=== PATIENT | female | born 1945 | race Caucasian/White ===

== ENCOUNTER 2018-12-07 21:11 | Inpatient (IN) | payer OTHER, MEDICAID ==
[~2018-12-07] VITALS: Ht 160 cm; Wt 98.0 kg
[2018-12-07 21:14] VITALS: BP_SYST 153
--- NOTE | 2018-12-07 21:17 | NUR ---
Pt BIB ALS from [facility] C/O fever x 3 hours. EMS states when they arrived on scene pt was tachycardic, hypertensive and slow to respond. Staff advised pt is not "acting normal". Upon arrival to ER pt is able to answer questions appropriately, tachycardic at 140, temp 105 and BP of 153/88. Pt C/O of pain and nausea at this time. Cooling measures initiated. Will continue to monitor.
--- NOTE | 2018-12-07 21:18 | NUR ---
Placed in room 03 . Placed on air sampling and monitoring, blood pressure machine and pulse oximeter. To gown for exam. Side rails up. Report given to MERCED TINOCO.
--- NOTE | 2018-12-07 21:18 | NUR ---
ER Dr. Theodore at bedside examining patient.
[2018-12-07] MEDS ORDERED: NACL 0.9% 1,000 ML IV ONE (21:19)
--- NOTE | 2018-12-07 21:19 | NUR ---
# 20 gauge angiocath placed to RT AC. Use of asceptic technique. Opsite placed over site. Blood return noted. Blood for lab drawn from site. Flushed with 10 cc of normal saline. No evidence of infiltration noted. Patient tolerated well.
[2018-12-07 21:34] LABS: BASOPHILS % (AUTO) 0.3 % (0.0-2.0); EOSINOPHILS # (AUTO) 0.1 K/uL (0.0-0.4); EOSINOPHILS % (AUTO) 0.8 % (0.0-4.0); HEMATOCRIT 39.2 % (36-48); LYMPHOCYTES # (AUTO) 0.5 K/uL (1.0-5.5); LYMPHOCYTES % (AUTO) 4.9 % (20.5-51.5); MEAN CORPUSCULAR HEMOGLOBIN 32 pg (27-31); MEAN CORPUSCULAR HGB CONC 33 % (32-36); MEAN CORPUSCULAR VOLUME 97 fL (79.0-98.0); MONOCYTES # (AUTO) 0.3 K/uL (0.0-1.0); MONOCYTES % (AUTO) 2.7 % (1.7-9.3); NEUTROPHILS # (AUTO) 9.8 K/uL (1.8-7.7); NEUTROPHILS % (AUTO) 91.3 % (40.0-70.0); PLATELET COUNT (AUTO) 185 K/uL (130-430); RED BLOOD CELL COUNT(AUTO) 4.04 MIL/uL (4.2-6.2); RED CELL DISTRIBUTION WIDTH 14.4 % (9.0-15.0); WHITE BLOOD COUNT (AUTO) 10.8 K/uL (4.8-10.8)
--- NOTE | 2018-12-07 21:38 | NUR ---
Radiology at [facility] for xray
[2018-12-07 21:43] LABS: ANION GAP 12 (5-15); CHLORIDE 102 mmol/L (98-107); CREATININE 1.15 mg/dL (0.55-1.30); GLUCOSE 137 mg/dL (70-99); POTASSIUM 3.7 mmol/L (3.5-5.1); SODIUM SERUM 137 mmol/L (136-145); UREA NITROGEN, BLOOD 26 mg/dL (8-21)
[2018-12-07] MEDS ORDERED: ACETAMINOPHEN 650 MG SUPP.RECT RC ONE (21:45)
[2018-12-07 21:49] LABS: ALANINE AMINOTRANSFERASE 48 U/L (12-78); ALBUMIN 2.8 g/dL (3.4-4.8); ASPARTATE AMINOTRANSFERASE 47 U/L (10-37); TOTAL BILIRUBIN 0.4 mg/dL (0.0-1.0)
--- NOTE | 2018-12-07 21:52 | NUR ---
Verbal order for indwelling catheter given by Dr. Theodore. # 16 FR Medina catheter with use of sterile technique. Immediate return of 125 cc clear yellow urine noted. Bedside drainage bag placed below level of bladder. Urine sample collected and sent to lab. Pt tolerated procedure well. Patient unable to toilet self.
[2018-12-07 21:58] LABS: PROTHROMBIN TIME 10.3 SECS (9.5-12.5)
[2018-12-07 22:33] LABS: BILIRUBIN,URINE NEGATIVE (NEGATIVE); BLOOD, URINE 1+ (NEGATIVE); CLARITY/URINE CLEAR (CLEAR); COLOR,URINE YELLOW (YELLOW); GLUCOSE,URINE NEGATIVE (NEGATIVE); KETONES,URINE NEGATIVE (NEGATIVE); LEUKOCYTE ESTERASE ,URINE NEGATIVE (NEGATIVE); NITRITE, URINE POSITIVE (NEGATIVE); PROTEIN URINE TRACE (NEGATIVE); UROBILINOGEN,URINE 0.2 (0.2-1.0)
[2018-12-07 22:39] LABS: BACTERIA,URINE MANY /HPF (None Seen); WBC,URINE 0-3 /HPF (0-3)
[2018-12-07] MEDS ORDERED: LEVOFLOXACIN 500 MG/D5W 100 ML IV ONE (23:00)
--- NOTE | 2018-12-07 23:35 | NUR ---
Pt is sleeping in bed, febrile. Pt denies any pain at this time. Will continue to monitor.
--- NOTE | 2018-12-07 23:47 | NUR ---
Pt temp is currently 100.9
[2018-12-08] VITALS (9 sets, daily range): BP systolic 117–170
[2018-12-08] MEDS ORDERED: FURO-150 PO (00:22)
[2018-12-08] MEDS ORDERED: TOP25 PO (00:22)
[2018-12-08] MEDS ORDERED: MOM PO (00:22)
[2018-12-08] MEDS ORDERED: FERR-69 PO (00:22)
[2018-12-08] MEDS ORDERED: DOCU-144 PO (00:22)
[2018-12-08] MEDS ORDERED: MENT118G TP (00:22)
[2018-12-08] MEDS ORDERED: ACET-2634 PO (00:22)
[2018-12-08] MEDS ORDERED: PRO10 PO (00:22)
[2018-12-08] MEDS ORDERED: BISA10SU61 RC (00:22)
[2018-12-08] MEDS ORDERED: LORA-258 PO (00:22)
[2018-12-08] MEDS ORDERED: LACT10SO6 PO (00:22)
[2018-12-08] MEDS ORDERED: MENT8OIN TP (00:22)
[2018-12-08] MEDS ORDERED: SENN-234 PO (00:22)
[2018-12-08] MEDS ORDERED: MECL-110 PO (00:22)
[2018-12-08] MEDS ORDERED: LOVA40TA75 PO (00:22)
[2018-12-08] MEDS ORDERED: METH500T PO (00:22)
[2018-12-08] MEDS ORDERED: FAMO20TA8 PO (00:22)
[2018-12-08] MEDS ORDERED: NA P133E41 RC (00:22)
[2018-12-08] MEDS ORDERED: FLUT50DI IH (00:22)
[2018-12-08] MEDS ORDERED: OXYC30TA89 PO (00:22)
[2018-12-08] MEDS ORDERED: HYDR-4038 PO (00:22)
[2018-12-08] MEDS ORDERED: IPRA4AER INH (00:22)
[2018-12-08] MEDS ORDERED: OXYC-133 PO (00:22)
[2018-12-08] MEDS ORDERED: GABA-533 PO (00:22)
--- NOTE | 2018-12-08 00:40 | NUR ---
Pt is resting in bed, no acute distress noted at this time. Will continue to monitor.
[2018-12-08] MEDS ORDERED: METHOCARBAMOL 500 MG TABLET PO PRN (00:45)
[2018-12-08] MEDS ORDERED: ONDANSETRON HCL 4 MG/2 ML VIAL IVP PRN (00:45)
[2018-12-08] MEDS ORDERED: ALBUTEROL SULFATE 0.083% 2.5 MG/3 ML VIAL.NEB INH PRN (00:45)
[2018-12-08] MEDS ORDERED: BISACODYL 10 MG/SUPPOSITORY RC PRN (00:45)
[2018-12-08] MEDS ORDERED: MILK OF MAGNESIA 30 ML UDC PO PRN (00:45)
--- NOTE | 2018-12-08 01:00 | NUR ---
Patient will be admitted to care of Dr. Fernandez. Admitted to telemetry unit. Will go to room 119. Belongings list completed. Summary report printed. Report will be given at bedside.
--- NOTE | 2018-12-08 01:25 | NUR ---
ADMISSION NOTE Received patient from ER via gurney. Patient admitted with diagnosis of Sepsis. Patient is awake, alert, oriented X 1. Patient oriented to hospital room, call light, toileting, pain management and safety-teach back done. Patient informed that EARNEST Campbell will be primary nurse and that their room number is 119A. Personal belongings checked and Belongings List documented. Call light within reach.
--- NOTE | 2018-12-08 01:30 | NUR ---
Patient transported to telemetry via gurney, accompanied by ER STAFF on cardiac nurse specialist per ACLS protocol.
--- NOTE | 2018-12-08 01:35 | NUR ---
Initial Note Received patient asleep but arousable. Awake, alert and oriented x 3. Forgetful at times. No SOB noted. Denies any pain or n/v at this time. Complain of left arm/shoulder pain upon movement. Skin intact. No peripheral edema noted. Redness discoloration noted on bilateral lower extremities, left hip, sacral and left buttocks area. Bilateral heels blanchable redness. Photos taken and documented. Heels off bed and BLE elevated on pillows. Assessment done. Repositioned. Had a BM. Skin care and incontinence care done. Febrile at 101.5. Sponge bath and cooling measures provided. Will medicate for fever. Care and monitoring will be provided per protocol. Call light within reach. Bed alarm on and at lowest position at all times. Kept clean, dry and comfortable. Sinus tachy on a monitor. Safety and fall precautions observed.
[2018-12-08] MEDS ORDERED: PIPERACILLIN/TAZOBACTAM 3.375 GM/VIAL (ZOSYN) IV ONE (01:43)
[2018-12-08] MEDS: PIPERACILLIN/TAZO 3.375/DEX-IS 50 ML IV SCH ×4 (01:54→18:32)
[2018-12-08] MEDS: NACL 0.9% 1,000 ML IV SCH ×2 (01:55→10:34)
[2018-12-08] MEDS: MECLIZINE HCL 25 MG TABLET (ANITVERT) PO SCH ×3 (01:57→15:58)
--- NOTE | 2018-12-08 02:00 | NUR ---
RN Note Resumed IVF and IV antibiotic given. No complaints at this time. Tolerated PO meds. Needs attended.
[2018-12-08] MEDS: ACETAMINOPHEN 325 MG TABLET PO PRN ×2 (02:41→08:23)
--- NOTE | 2018-12-08 04:00 | NUR ---
RN Note Patient sleeping at this time. No SOB or grimacing noted. IVF infusing.
--- NOTE | 2018-12-08 04:30 | NUR ---
RN Note Patient awake. Complain of leg restlessness and medicated. She said that her legs fell from the bed. Pillow was under her legs but she moved her legs off the pillow. Reoriented to what happened. Repositioned. Kept warm and comfortable. Afebrile.
--- NOTE | 2018-12-08 05:37 | NUR ---
End Note Awake, alert with confusion and forgetfulness. Reoriented to time and event. Afebrile. Latest temp was 98.8. VS stable. No complain of SOB or n/v since admission. Complain of left shoulder/arm pain only upon movement. Medicated for leg cramps one time. Refused pillow under the legs. IVF infusing. Repositioned Q2 hours. Skin and incontinence care provided. Had small BM. Care and monitoring provided per protocol. Call light within reach. Bed alarm on and at lowest position at all times. Needs attended. Kept clean, dry and comfortable. NSR on monitor.
--- NOTE | 2018-12-08 07:20 | NUR ---
Opening Note patient resting in bed, awake and alert, breathing unlabored and symmetrical, educated patient on use of call light for assistance, verbalized understanding, call light and bedside table left within reach, will continue to monitor
[2018-12-08] MEDS: ALBUTEROL SULFATE 0.083% 2.5 MG/3 ML VIAL.NEB INH SCH ×3 (07:32→19:22)
[2018-12-08] MEDS: BUDESONIDE 0.5 MG/2 ML AMPUL.NEB INH SCH ×2 (07:36→19:40)
[2018-12-08] MEDS: FLUoxetine HCL 10 MG CAPSULE (PROzac) PO SCH (08:23)
[2018-12-08] MEDS: FAMOTIDINE 20 MG TABLET PO SCH ×2 (08:23→20:54)
[2018-12-08] MEDS: TOPIRAMATE 25 MG TABLET(TOPAMAX) PO SCH ×2 (08:24→20:54)
[2018-12-08] MEDS: GABAPENTIN 400 MG CAPSULE PO SCH ×3 (08:24→20:54)
[2018-12-08] MEDS: DOCUSATE SODIUM 100 MG CAPSULE PO SCH (08:24)
--- NOTE | 2018-12-08 08:27 | NUR ---
Medication educated patient regarding meds, verbalized understanding, lab at bedside drawing blood, educated patient regarding plan of care, verbalized understanding, educated patient on use of call light for assistance, verbalized understanding, call light and bedside table within reach, will continue to monitor
--- NOTE | 2018-12-08 08:34 | NUR ---
Nutrition Update Marty Scale 14 noted. Pt admitted for sepsis. Diet: 2 gm Na BMI: 38.3 kg/m2 RD to follow per nutrition care standards.
[2018-12-08 08:47] LABS: BASOPHILS % (AUTO) 0.1 % (0.0-2.0); HEMATOCRIT 39.6 % (36-48); HEMOGLOBIN 12.6 g/dL (12.0-16.0); LYMPHOCYTES # (AUTO) 1.8 K/uL (1.0-5.5); LYMPHOCYTES % (AUTO) 7.7 % (20.5-51.5); MEAN CORPUSCULAR HEMOGLOBIN 31 pg (27-31); MEAN CORPUSCULAR HGB CONC 32 % (32-36); MEAN CORPUSCULAR VOLUME 98 fL (79.0-98.0); MONOCYTES # (AUTO) 0.6 K/uL (0.0-1.0); MONOCYTES % (AUTO) 2.4 % (1.7-9.3); NEUTROPHILS # (AUTO) 20.5 K/uL (1.8-7.7); NEUTROPHILS % (AUTO) 89.8 % (40.0-70.0); PLATELET COUNT (AUTO) 185 K/uL (130-430); RED BLOOD CELL COUNT(AUTO) 4.07 MIL/uL (4.2-6.2); RED CELL DISTRIBUTION WIDTH 14.8 % (9.0-15.0); WHITE BLOOD COUNT (AUTO) 22.9 K/uL (4.8-10.8)
[2018-12-08 08:57] LABS: ANION GAP 13 (5-15); CALCIUM 9.2 mg/dL (8.4-11.0); CHLORIDE 108 mmol/L (98-107); GLUCOSE 154 mg/dL (70-99); POTASSIUM 3.4 mmol/L (3.5-5.1); SODIUM SERUM 140 mmol/L (136-145); UREA NITROGEN, BLOOD 21 mg/dL (8-21)
[2018-12-08] MEDS ORDERED: FLUTICASONE 250 mCg/SALMETEROL 50 mCg DISKUS W.DEV INH SCH (09:00)
[2018-12-08 09:03] LABS: ALANINE AMINOTRANSFERASE 33 U/L (12-78); ALBUMIN 2.5 g/dL (3.4-4.8); ASPARTATE AMINOTRANSFERASE 36 U/L (10-37); TOTAL BILIRUBIN 0.5 mg/dL (0.0-1.0)
[2018-12-08] MEDS: LORazepam 1 MG TABLET PO PRN (09:07)
--- NOTE | 2018-12-08 10:35 | NUR ---
Dr. Marifer Julian MD examined patient, keep IV fluid rate, new orders received, will implement
[2018-12-08] MEDS ORDERED: ENOXAPARIN SODIUM 40 MG/0.4 ML SYRINGE SUBCUT ONE (10:45)
--- NOTE | 2018-12-08 10:47 | NUR ---
CONSULTATION PAGED REASON FOR CONSULTATION:ASTHMA WAS CONSULT CALLED?Y PERSON WHO WAS NOTIFIED:CRISTIANO CONSULTING PHYSICIAN:BK DOUGLASS MACHINING ENGINEER SPECIALTY:PULMONARY MACHINING ENGINEER PHONE NUMBER:[phone] REQUESTING PHYSICIAN:NAGI MCCURDY
--- NOTE | 2018-12-08 11:50 | NUR ---
Dr. Perry Rounds at this time, examined patient, will follow through with MD orders
--- NOTE | 2018-12-08 13:30 | NUR ---
IV fluids hung at this time, patient awake, taking off her dentures, breathing unlabored and symmetrical at this time, safety precautions in place, educated patient on use of call light for assistance, verbalized understanding, call light and bedside table within reach, will continue to monitor
[2018-12-08] MEDS: 0.45% NACL 1,000 ML IV SCH (13:33)
--- NOTE | 2018-12-08 13:34 | NUR ---
Patient being taken to radiology at this time, will assess when she returns
--- NOTE | 2018-12-08 15:02 | NUR ---
Patient talking to son on phone at this time, she is resting in bed, no signs of distress, breathing unlabored and symmetrical, IV fluids infusing, safety precautions in place, call light and bedside table left within reach, will continue to monitor
--- NOTE | 2018-12-08 15:59 | NUR ---
Patient refused Antivert stated she doesnt need it, educated her on risks of not receiving med, verbalized understanding, she is resting in bed, denies pain, no SOB or distress noted, educated patient on use of call light for assistance, verbalized understanding, call light and bedside table within reach, will continue to monitor
[2018-12-08] MEDS: LOVASTATIN 20 MG TABLET PO SCH (18:00)
--- NOTE | 2018-12-08 18:22 | NUR ---
Spoke with Dr. Hood on-call MD for Dr. Caicedo, informed her about preliminary blood culture results, MD ordered vancomycin, pharmacy to dose, will implement
--- NOTE | 2018-12-08 18:38 | NUR ---
CLosing Note antibiotics hung at this time as scheduled, educated patient and daughter regarding meds, verbalized understanding, IV site remains patent, patient calm and resting in bed at this time, awake and alert, no signs of distress, breathing unlabored and symmetrical, educated patient on use of call light for assistance, verbalized understanding, call light and bedside table within reach, will endorse to film processing shift supervisor nurse
--- NOTE | 2018-12-08 19:20 | NUR ---
Initial Notes Received handoff report from offgoing nurse at the bedside. Patient is awake and alert, resting comfortably in bed. No SOB, no acute distress, no complaints of pain or discomfort at this time. Bed is locked, in the lowest position, 2x siderails up, bed alarm is on. Call light is within reach. Encouraged patient to call for assistance. Will continue with plan of care.
--- NOTE | 2018-12-08 19:33 | NUR ---
PHARMACY NOTIFIED Missing dose of Vancomycin that is due at 1900. Pharmacy stated that they will bring it as soon as possible.
[2018-12-08] MEDS: VANCOMYCIN HCL 1,500 MG in NS 250 ML IV SCH (20:54)
--- NOTE | 2018-12-08 21:00 | NUR ---
Patient's IV no longer intact. Removed IV, catheter intact. New IV started on left hand #22g. Successful after 1 attempt. Resumed current IVF, see eMAR. Will observe for any signs of infiltration.
--- NOTE | 2018-12-08 22:00 | NUR ---
patient had an episode of bowel incontinence, loose and brown. Patient provided with incontinence care and is now clean and dry, resting comfortably in bed. call light within reach. encouraged patient to call for assistance.
--- NOTE | 2018-12-08 23:51 | NUR ---
Patient resting comfortably in bed, eyes closed. Breathing even and unlabored, visible chest rise and fall noted. No SOB, no acute distress, no signs of pain or facial grimacing noted. Call light within reach.
[2018-12-09] MEDS: PIPERACILLIN/TAZO 3.375/DEX-IS 50 ML IV SCH ×4 (00:01→17:03)
[2018-12-09] MEDS: ALBUTEROL SULFATE 0.083% 2.5 MG/3 ML VIAL.NEB INH SCH ×3 (00:43→20:49)
--- NOTE | 2018-12-09 02:00 | NUR ---
Patient resting comfortably in bed, eyes closed. no sob, no acute distress, no signs of pain or facial grimacing. breathing even and unlabored, visible chest rise and fall noted. stable.
--- NOTE | 2018-12-09 04:00 | NUR ---
Patient resting comfortably in bed. Assisted patient to turn and reposition as needed. No complaints of pain at this time. Provided water for hydration per patient request. Bed is locked, in the lowest position, 2x side rails up, bed alarm is on. Call light is within reach. Encouraged patient to call.
[2018-12-09] MEDS: 0.45% NACL 1,000 ML IV SCH ×2 (05:29→16:57)
[2018-12-09 06:01] LABS: BASOPHILS % (AUTO) 0.2 % (0.0-2.0); HEMATOCRIT 36.6 % (36-48); HEMOGLOBIN 11.9 g/dL (12.0-16.0); LYMPHOCYTES % (AUTO) 8.5 % (20.5-51.5); MEAN CORPUSCULAR HEMOGLOBIN 31 pg (27-31); MEAN CORPUSCULAR HGB CONC 33 % (32-36); MEAN CORPUSCULAR VOLUME 96 fL (79.0-98.0); MONOCYTES # (AUTO) 0.5 K/uL (0.0-1.0); MONOCYTES % (AUTO) 4.4 % (1.7-9.3); NEUTROPHILS # (AUTO) 10.5 K/uL (1.8-7.7); NEUTROPHILS % (AUTO) 86.9 % (40.0-70.0); PLATELET COUNT (AUTO) 173 K/uL (130-430); RED BLOOD CELL COUNT(AUTO) 3.79 MIL/uL (4.2-6.2); RED CELL DISTRIBUTION WIDTH 14.6 % (9.0-15.0); WHITE BLOOD COUNT (AUTO) 12.1 K/uL (4.8-10.8)
--- NOTE | 2018-12-09 06:33 | NUR ---
Closing Notes Patient resting comfortably in bed, eyes closed. Breathing even and unlabored with visible chest rise and fall noted. No SOB, no acute distress, no signs of pain or facial grimacing noted. IV site intact, dressing clean and dry, saline locked. Bed is locked, in the lowest position, 2x side rails up, bed alarm is on. Call light within reach. Fall and safety precautions maintained. All needs have been met during this shift. Will endorse care to oncoming dayshift nurse.
[2018-12-09 06:39] LABS: ANION GAP 12 (5-15); CALCIUM 8.9 mg/dL (8.4-11.0); CHLORIDE 110 mmol/L (98-107); CREATININE 0.78 mg/dL (0.55-1.30); GLUCOSE 108 mg/dL (70-99); SODIUM SERUM 144 mmol/L (136-145); UREA NITROGEN, BLOOD 13 mg/dL (8-21)
[2018-12-09 06:47] LABS: ALANINE AMINOTRANSFERASE 30 U/L (12-78); ALBUMIN 2.4 g/dL (3.4-4.8); ASPARTATE AMINOTRANSFERASE 28 U/L (10-37); TOTAL BILIRUBIN 0.3 mg/dL (0.0-1.0)
--- NOTE | 2018-12-09 06:56 | NUR ---
Nutrition Update Marty Scale 16 noted. Pt admitted for Sepsis Diet: 2gm Na BMI: 38.3 kg/m2 RD to follow per nutrition care standards.
[2018-12-09 07:04] LABS: POTASSIUM 2.8 mmol/L (3.5-5.1)
[2018-12-09] MEDS ORDERED: POTASSIUM CHLORIDE 20 MEQ TAB.PRT.SR PO ONE ×2 (07:45→11:45)
--- NOTE | 2018-12-09 08:00 | NUR ---
Note Pt assisted in sitting up in bed to eat her breakfast. Tele unit attached and intact at this time. IV in left hand intact and patent infusing IVF's well. No SOB/resp distress or pain/discomfort was noted at this time. Dr Caicedo was called for low potassium 2.8 and order for replacement potassium PO was given. No needs noted. Call light within reach.
[2018-12-09 08:05] VITALS: BP_SYST 149
[2018-12-09] MEDS: FAMOTIDINE 20 MG TABLET PO SCH ×2 (08:44→21:23)
[2018-12-09] MEDS: GABAPENTIN 400 MG CAPSULE PO SCH ×3 (08:44→21:23)
[2018-12-09] MEDS: TOPIRAMATE 25 MG TABLET(TOPAMAX) PO SCH ×2 (08:44→21:23)
[2018-12-09] MEDS: FLUoxetine HCL 10 MG CAPSULE (PROzac) PO SCH (08:44)
[2018-12-09] MEDS: DOCUSATE SODIUM 100 MG CAPSULE PO SCH (08:45)
[2018-12-09] MEDS: ENOXAPARIN SODIUM 40 MG/0.4 ML SYRINGE SUBCUT SCH (08:45)
[2018-12-09] MEDS: MECLIZINE HCL 25 MG TABLET (ANITVERT) PO SCH ×3 (08:47→17:01)
--- NOTE | 2018-12-09 12:00 | NUR ---
NOTE Pt was seen by Dr Caicedo and Dr Perry - assessment completed and questions/concerns were answered. Orders written and carried out. Pt was seen and assessed by PT. Pt sat on side of bed and stood up. Pt could only tolerate this much at this time. No needs noted at this time. Tele unit was dc'd and returned to oil processing technician at this time. Call light within reach.
[2018-12-09 13:01] VITALS: BP_SYST 131
[2018-12-09] MEDS: BUDESONIDE 0.5 MG/2 ML AMPUL.NEB INH SCH ×2 (14:01→20:51)
--- NOTE | 2018-12-09 15:00 | NUR ---
Note Pt resting in bed. No needs noted. IVF's infusing well at this time. Call light within reach.
--- NOTE | 2018-12-09 15:03 | NUR ---
Dietitian Recommendations *Recommend [facility] Cardiac diet w/ Glucerna TID. ONS will provide additional 660 kcal and 30 gm protein daily. Please see Nutritional Assessment for details. RUFINO, RD
[2018-12-09 16:42] VITALS: BP_SYST 157
[2018-12-09] MEDS: LOVASTATIN 20 MG TABLET PO SCH (17:09)
[2018-12-09] MEDS: VANCOMYCIN HCL 1,500 MG in NS 250 ML IV SCH (18:10)
--- NOTE | 2018-12-09 18:20 | NUR ---
Note Pt resting in bed, wants to eat her dinner (on bedside table) later on. No SOB/resp distress or pain/discomfort noted at this time. Pt was notified that dinner tray on table. IV in left hand intact and patent infusing IVF's well. No needs noted. Call light within reach. Pt was checked on q1' and PRN all shift for needs and care.
--- NOTE | 2018-12-09 19:37 | NUR ---
Opening notes Received report. Patient resting in bed. No signs of distress noted. Breathing is even and unlabored. IV patent and intact infusing fluids. Medina catheter in place. No needs at this time. call light with the patient. Safety precautions in place.
[2018-12-09 20:00] VITALS: BP_SYST 111
--- NOTE | 2018-12-09 21:23 | NUR ---
Medications given. Educated the action and side effects of medications. Patient tolerated well. No signs of allergic reaction noted. No other needs. Call light with the patient. Safety precautions in place.
--- NOTE | 2018-12-09 22:33 | NUR ---
Hygiene care provided. Patient had loose greenish brown stool. Patient tolerated well. Patient repositioned to comfort. No other needs. Call light with the patient. Safety precautions in place.
[2018-12-10] MEDS: 0.45% NACL 1,000 ML IV SCH (00:23)
[2018-12-10] MEDS: MECLIZINE HCL 25 MG TABLET (ANITVERT) PO SCH ×3 (00:24→17:10)
[2018-12-10] MEDS: PIPERACILLIN/TAZO 3.375/DEX-IS 50 ML IV SCH ×3 (00:24→11:14)
--- NOTE | 2018-12-10 00:30 | NUR ---
Pain Patient complains of 3/10 headache. PRN pain medication given. Educated the action and side effects of medication. Patient verbalized understanding. No other needs. Call light with the patient. Safety precautions in place.
[2018-12-10 00:31] VITALS: BP_SYST 112
[2018-12-10] MEDS: ACETAMINOPHEN 325 MG TABLET PO PRN (00:31)
[2018-12-10] MEDS: ALBUTEROL SULFATE 0.083% 2.5 MG/3 ML VIAL.NEB INH SCH ×4 (01:00→20:17)
--- NOTE | 2018-12-10 02:36 | NUR ---
Daniel Fernandez s/w Horace
--- NOTE | 2018-12-10 02:42 | NUR ---
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
--- NOTE | 2018-12-10 04:22 | NUR ---
Resting awake in bed, on cell phone. No signs of distress noted. Breathing even and unlabored. Call light with the patient. Safety precautions in place.
--- NOTE | 2018-12-10 06:38 | NUR ---
Closing notes Patient resting comfortably in bed. No signs of distress noted. Breathing even and unlabored. IV patent and intact infusing fluids. All needs met throughout the shift. Call light with the patient. Safety and contact precautions in place. Will endorse care to day shift RN.
[2018-12-10 07:01] LABS: BASOPHILS % (AUTO) 0.2 % (0.0-2.0); EOSINOPHILS % (AUTO) 0.4 % (0.0-4.0); HEMATOCRIT 37.4 % (36-48); HEMOGLOBIN 12.2 g/dL (12.0-16.0); LYMPHOCYTES # (AUTO) 1.7 K/uL (1.0-5.5); LYMPHOCYTES % (AUTO) 16.3 % (20.5-51.5); MEAN CORPUSCULAR HEMOGLOBIN 32 pg (27-31); MEAN CORPUSCULAR HGB CONC 33 % (32-36); MEAN CORPUSCULAR VOLUME 96 fL (79.0-98.0); MONOCYTES # (AUTO) 0.6 K/uL (0.0-1.0); MONOCYTES % (AUTO) 5.7 % (1.7-9.3); NEUTROPHILS # (AUTO) 8.2 K/uL (1.8-7.7); NEUTROPHILS % (AUTO) 77.4 % (40.0-70.0); PLATELET COUNT (AUTO) 203 K/uL (130-430); RED BLOOD CELL COUNT(AUTO) 3.88 MIL/uL (4.2-6.2); RED CELL DISTRIBUTION WIDTH 14.2 % (9.0-15.0); WHITE BLOOD COUNT (AUTO) 10.6 K/uL (4.8-10.8)
[2018-12-10 07:22] LABS: ALANINE AMINOTRANSFERASE 26 U/L (12-78); ALBUMIN 2.5 g/dL (3.4-4.8); ANION GAP 10 (5-15); ASPARTATE AMINOTRANSFERASE 24 U/L (10-37); CHLORIDE 110 mmol/L (98-107); CREATININE 0.58 mg/dL (0.55-1.30); GLUCOSE 92 mg/dL (70-99); POTASSIUM 3.3 mmol/L (3.5-5.1); SODIUM SERUM 140 mmol/L (136-145); TOTAL BILIRUBIN 0.4 mg/dL (0.0-1.0); UREA NITROGEN, BLOOD 8 mg/dL (8-21)
[2018-12-10] MEDS: BUDESONIDE 0.5 MG/2 ML AMPUL.NEB INH SCH ×2 (07:24→20:20)
[2018-12-10] MEDS: DOCUSATE SODIUM 100 MG CAPSULE PO SCH (08:06)
[2018-12-10 08:08] VITALS: BP_SYST 165
[2018-12-10] MEDS: TOPIRAMATE 25 MG TABLET(TOPAMAX) PO SCH ×2 (08:17→21:27)
[2018-12-10] MEDS: GABAPENTIN 400 MG CAPSULE PO SCH ×3 (08:17→21:27)
[2018-12-10] MEDS: hydrALAZINE HCL 25 MG TABLET PO PRN (08:18)
[2018-12-10] MEDS: FAMOTIDINE 20 MG TABLET PO SCH ×2 (08:18→21:27)
[2018-12-10] MEDS: FLUoxetine HCL 10 MG CAPSULE (PROzac) PO SCH (08:18)
[2018-12-10] MEDS: OXYCODONE/ACETAMINOPHEN *10*mg/325 mg TABLET PO PRN ×2 (08:19→21:26)
[2018-12-10] MEDS: ENOXAPARIN SODIUM 40 MG/0.4 ML SYRINGE SUBCUT SCH (08:20)
--- NOTE | 2018-12-10 09:56 | NUR ---
PT note Patient refusing therapy at this time, stating "I having slept all night, I just want to rest", nursing made aware.
--- NOTE | 2018-12-10 10:45 | NUR ---
Dr. Caicedo informed regarding poor appetite, mucoid stool, will continue to monitor.
[2018-12-10] MEDS: LORazepam 1 MG TABLET PO PRN (11:19)
[2018-12-10 11:21] VITALS: BP_SYST 151
--- NOTE | 2018-12-10 12:32 | NUR ---
CONSULTATION PAGED/CALLED Reason for Consultation: [] SEPSIS Person Who was Notified: [] ENZO Consulting Physician: [] DR MCCLURE Animal Stunner Specialty: [] ID Ordering Physician: [] DR CHRISTOPHER
--- NOTE | 2018-12-10 14:52 | NUR ---
Spoke to Dr. CHRISTOPHER regarding the headache ,ringing of he ear, poor appetite of the patient , with new order carried out.
[2018-12-10] MEDS ORDERED: MORPHINE 2 MG/ML INJ. SYRINGE IVP PRN (15:00)
[2018-12-10] MEDS ORDERED: POTASSIUM CHLORIDE 20 MEQ TAB.PRT.SR PO ONE ×2 (15:00)
[2018-12-10] MEDS: D5/0.45 NS 1,000 ML IV SCH (15:03)
--- NOTE | 2018-12-10 15:56 | NUR ---
Nutrition Note RD was consulted by primary RN regarding pt's low appetite and diarrhea. RD met w/ pt at bedside to educate her on low fiber foods to help w/ diarrhea, as well as inquire about food preferences for low appetite. Pt stated that she was not interested in eating as everything including water seems to be going right through her. She stated she has had diarrhea x6 today. RD offered Banatrol BID (banana flakes) to start at dinner tonight -- pt accepted. This product may help bulk her stool. NILDA notified RN. NILDA to continue to follow as per nutrition care standards.
--- NOTE | 2018-12-10 16:11 | NUR ---
Skin care/comfort Perineal care given, wash with soap/water kept dry clean , denuded skin looks much better than earlier redness is less,skin cream barrier applied , repositioned.
[2018-12-10 16:54] VITALS: BP_SYST 157
[2018-12-10] MEDS: ATORVASTATIN 10 MG TABLET PO SCH (17:09)
--- NOTE | 2018-12-10 17:20 | NUR ---
MD Rounds Seen and examined by DR. Mckeon informed regarding mucoid stool, antibiotic discontinued and changed , will monitor.
[2018-12-10] MEDS ORDERED: LOPERAMIDE HCL 2 MG CAPSULE PO ONE (17:30)
[2018-12-10] MEDS: AMPICILLIN SODIUM 1 GM in NS 50 ML IV SCH (18:00)
[2018-12-10] MEDS ORDERED: LOPERAMIDE HCL 2 MG CAPSULE ONE (18:14)
--- NOTE | 2018-12-10 19:37 | NUR ---
OPENING NOTE Patient and bedside report received from day shift nurse. COMPENSATION COORDINATOR at bedside providing care. Patient is awake, alert and oriented. Plan of care discussed, agreeable. IV fluids to left hand 22g is infusing as ordered. Safety, fall, and contact isolation precautions in place. Bed alarm on. Call light with patient. Will continue with plan of care.
[2018-12-10 20:00] VITALS: BP_SYST 157
--- NOTE | 2018-12-10 21:26 | NUR ---
PAIN/PERCOCET GIVEN Patient is c/o pain; percocet was administered as ordered PRN for severe pain; see EMAR for details. Educated regarding medication and potential side effects. Safety and fall precautions are in place. Call light with patient. Room near nurses station. Will monitor.
[2018-12-10] MEDS: LACTOBACILLUS RHAMNOSUS GG 1 CAP CAPSULE PO SCH (21:27)
[2018-12-10 23:40] VITALS: BP_SYST 154
--- NOTE | 2018-12-10 23:44 | NUR ---
RESTING Patient is resting with both eyes closed. No s/s of acute distress. Visible chest rise and fall. Safety and fall precautions in place. Call light with patient. Will monitor.
[2018-12-11] MEDS: MECLIZINE HCL 25 MG TABLET (ANITVERT) PO SCH ×3 (00:11→16:26)
[2018-12-11] MEDS ORDERED: AMPICILLIN SODIUM/SULBACTAM NA 1.5 GM VIAL ONE (00:41)
[2018-12-11] MEDS ORDERED: AMPICILLIN SODIUM 1 GM VIAL ONE (00:48)
[2018-12-11] MEDS: AMPICILLIN SODIUM 1 GM in NS 50 ML IV SCH ×5 (00:55→23:14)
--- NOTE | 2018-12-11 00:55 | NUR ---
AMPICILLIN Patient's ampicillin administered as ordered. See EMAR. Educated pt. regarding medication and potential side effects. Side effects sheet utilized at bedside. Safety and fall precautions in place. Will monitor.
[2018-12-11] MEDS: ALBUTEROL SULFATE 0.083% 2.5 MG/3 ML VIAL.NEB INH SCH ×4 (01:25→20:28)
--- NOTE | 2018-12-11 03:25 | NUR ---
RESTING Patient is sleeping with no s/s of acute distress. Visible chest rise and fall. Safety and fall precautions in place. Call light with patient. Will monitor.
--- NOTE | 2018-12-11 07:20 | NUR ---
Opening note Patient resting in bed at this time, no SOB, no complaints of pain. Patient is A/O x4. Patient noted with cough, no sputum at this time. Medina catheter in place, draining yellow clear urine. On fall and seizure precautions, reinforced. Bed kept in lowest position, bed alarm on, 3 side rails up, padded side rails in place, call light within reach. Will continue to monitor.
[2018-12-11] MEDS: D5/0.45 NS 1,000 ML IV SCH ×2 (07:40→23:13)
[2018-12-11 08:10] VITALS: BP_SYST 142
[2018-12-11] MEDS: DOCUSATE SODIUM 100 MG CAPSULE PO SCH (09:00)
[2018-12-11] MEDS: OXYCODONE/ACETAMINOPHEN *10*mg/325 mg TABLET PO PRN ×2 (09:00→20:58)
[2018-12-11] MEDS: TOPIRAMATE 25 MG TABLET(TOPAMAX) PO SCH ×2 (09:19→20:57)
[2018-12-11] MEDS: FLUoxetine HCL 10 MG CAPSULE (PROzac) PO SCH (09:19)
[2018-12-11] MEDS: LACTOBACILLUS RHAMNOSUS GG 1 CAP CAPSULE PO SCH ×2 (09:19→20:58)
[2018-12-11] MEDS: GABAPENTIN 400 MG CAPSULE PO SCH ×3 (09:20→20:58)
[2018-12-11] MEDS: FAMOTIDINE 20 MG TABLET PO SCH ×2 (09:20→20:58)
[2018-12-11] MEDS: ENOXAPARIN SODIUM 40 MG/0.4 ML SYRINGE SUBCUT SCH (09:21)
[2018-12-11] MEDS: LORazepam 1 MG TABLET PO PRN (09:55)
[2018-12-11] MEDS: BUDESONIDE 0.5 MG/2 ML AMPUL.NEB INH SCH ×2 (10:50→20:28)
--- NOTE | 2018-12-11 11:00 | NUR ---
Rounds Patient resting in bed at this time, no SOB. No cough, no congestion at this time. No complaints of pain. No nausea, no vomiting.
[2018-12-11 13:06] VITALS: BP_SYST 159
--- NOTE | 2018-12-11 14:00 | NUR ---
Refusing turning/repositioning Patient refusing to be turned and repositioned at this time. Educated patient on importance of turning, patient stated nothing has ever happened to her back before, and she is comfortable laying on her back. On ANA PAULA mattress, pillow support on bilateral lower extremities.
[2018-12-11 15:00] VITALS: BP_SYST 159
[2018-12-11] MEDS: ACETAMINOPHEN 325 MG TABLET PO PRN (15:15)
--- NOTE | 2018-12-11 15:20 | NUR ---
Rounds/fever Patient noted with temp of 100.5. No complaints of pain. Tylenol PRN given as ordered, ice packs applied. Patient resting in bed at this time.
[2018-12-11 15:30] VITALS: BP_SYST 149
--- NOTE | 2018-12-11 16:10 | NUR ---
Turning/repositioning Patient refusing to be turned and repositioned. Educated patient on importance of turning and repositioning, patient still refusing, states she is comfortable on her back. On ANA PAULA mattress, Pillow support on bilateral lower extremities.
--- NOTE | 2018-12-11 16:31 | NUR ---
Temp Temperature at 99.0 at this time, ice packs provided. No chills noted.
[2018-12-11] MEDS: ATORVASTATIN 10 MG TABLET PO SCH (17:11)
--- NOTE | 2018-12-11 18:01 | NUR ---
Nutrition F/U and Consult RD reviewed pt's current EMR record including diet Hx, physician notes, nursing notes, pertinent labs/meds/procedures, care trends, and care activity. Current Diet Order: 2 gm Na, CCHO, cardiac, Glucerna TID, Banatrol BID Subjective Info: Nutrition Consult received for poor appetite and diarrhea 12/10/18. Pt seen resting in bed at time of RD visit. Pt reported that she only ate strawberries and a banana today as she does not have much of an appetite. Pt had a fever earlier per RN, but otherwise, has only had two BMs today. Pt reported that she had solid BM today, and no longer experiencing diarrhea. RD encouraged pt to try to increase PO intakes for adequate nutrition. Current % PO: refused meals x3 per EMR since 12/10/18 Problem/Etiology/Signs/Symptoms Inadequate nutrient intake r/t poor appetite AEB negligible PO intake and current intake meeting <75% of meals. *ongoing Expected Outcomes/Goals Monitor appetite and PO intake w/ goal of pt meeting at least 75% of estimated nutritional needs, labs trending WNL, normal GI function, skin integrity/wt maintenance. Dietitian Recommendations *Recommend continuing 2 gm Na, CCHO, cardiac diet w/ Glucerna TID and Banatrol BID (ONS will provide additional 660 kcal/day and 30 gm protein/day) Follow Up High Risk: F/U in 2-3 days Addendum: 12/11/18 at [address] Pt reported that she would still like to receive Glucerna and Banatrol supplements.
--- NOTE | 2018-12-11 18:06 | NUR ---
Closing note Patient resting in bed, no complaints of pain. Patient refusing to be turned, educated patient on the importance of turning, patient verbalized understanding but still refuses, states she is comfortable on her back, and nothing will happen to her back. On ANA PAULA mattress. IV site patent and intact, no infiltration noted. On contact isolation for MRSA of nares, On seizure and fall precautions, reinforced. Padded side rails in place, bed in lowest position, bed alarm on, 2 side rails up, call light within reach.
--- NOTE | 2018-12-11 18:07 | NUR ---
Dietitian Recommendations *Recommend continuing 2 gm Na, CCHO, cardiac diet w/ Glucerna TID and Banatrol BID (ONS will provide additional 660 kcal/day and 30 gm protein/day) LP, RD Please refer to Nutrition F/U for details.
--- NOTE | 2018-12-11 19:10 | NUR ---
OPENING NOTE Patient and bedside report received from day shift nurseS. Patient is awake, alert and oriented. Plan of care discussed, agreeable. IV fluids to left hand 22g is infusing as ordered. Safety, fall, and contact isolation precautions in place. Bed alarm on. Call light with patient. Will continue with plan of care.
[2018-12-11 20:00] VITALS: BP_SYST 155
[2018-12-11] MEDS: CIPROFLOXACIN HCL/DEXAMET 7.5 ML OTIC DROPS.SUSP OT SCH (20:57)
[2018-12-11] MEDS ORDERED: CIPRO HC 10 ML OTIC SUSPENSION OT SCH (21:00)
[2018-12-11] MEDS ORDERED: CIPROFLOXACIN HCL 0.3% EYE DRP 2.5 ML DROPS OP SCH (21:00)
--- NOTE | 2018-12-11 22:59 | NUR ---
REQUESTED BLANKET [place] was provided as requested by patient.
[2018-12-11 23:44] VITALS: BP_SYST 165
[2018-12-12] MEDS: MECLIZINE HCL 25 MG TABLET (ANITVERT) PO SCH ×4 (00:04→23:45)
[2018-12-12] MEDS: hydrALAZINE HCL 25 MG TABLET PO PRN (01:06)
--- NOTE | 2018-12-12 01:06 | NUR ---
APRESOLINE GIVEN FOR ELEVATED BP Patient was given Apresoline as ordered PRN for elevated BP. See EMAR. Educated patient regarding medication and potential side effects. Verbalized understanding. Will monitor.
[2018-12-12] MEDS: ALBUTEROL SULFATE 0.083% 2.5 MG/3 ML VIAL.NEB INH SCH ×4 (01:34→19:59)
[2018-12-12 02:06] VITALS: BP_SYST 154
--- NOTE | 2018-12-12 02:06 | NUR ---
BLOOD PRESSURE RECHECK AFTER APRESOLINE DOSE Patient's blood pressure 154/78. See flowsheet. Denies any needs at this time.
--- NOTE | 2018-12-12 03:13 | NUR ---
SLEEPING Patient is resting in bed; no s/s of acute distress. Visible chest rise and fall. Call light with patient. Will monitor.
[2018-12-12] MEDS: AMPICILLIN SODIUM 1 GM in NS 50 ML IV SCH ×4 (05:20→23:42)
[2018-12-12] MEDS: LORazepam 1 MG TABLET PO PRN (05:24)
--- NOTE | 2018-12-12 05:24 | NUR ---
ATIVAN GIVEN FOR ANXIETY Patient was given ativan as ordered PRN for her complaints of anxiety and not being able to relax. Educated patient regarding medication and potential side effects. Verbalized understanding. Will monitor.
[2018-12-12 06:20] LABS: BASOPHILS % (AUTO) 0.5 % (0.0-2.0); EOSINOPHILS # (AUTO) 0.2 K/uL (0.0-0.4); EOSINOPHILS % (AUTO) 3.3 % (0.0-4.0); HEMATOCRIT 34.9 % (36-48); HEMOGLOBIN 11.5 g/dL (12.0-16.0); LYMPHOCYTES # (AUTO) 2.4 K/uL (1.0-5.5); LYMPHOCYTES % (AUTO) 39.6 % (20.5-51.5); MEAN CORPUSCULAR HEMOGLOBIN 32 pg (27-31); MEAN CORPUSCULAR HGB CONC 33 % (32-36); MEAN CORPUSCULAR VOLUME 97 fL (79.0-98.0); MONOCYTES # (AUTO) 0.5 K/uL (0.0-1.0); MONOCYTES % (AUTO) 7.7 % (1.7-9.3); NEUTROPHILS # (AUTO) 2.9 K/uL (1.8-7.7); NEUTROPHILS % (AUTO) 48.9 % (40.0-70.0); PLATELET COUNT (AUTO) 188 K/uL (130-430); RED BLOOD CELL COUNT(AUTO) 3.61 MIL/uL (4.2-6.2); RED CELL DISTRIBUTION WIDTH 14.2 % (9.0-15.0)
[2018-12-12 06:36] LABS: ALANINE AMINOTRANSFERASE 22 U/L (12-78); ALBUMIN 2.4 g/dL (3.4-4.8); ASPARTATE AMINOTRANSFERASE 18 U/L (10-37); CALCIUM 8.8 mg/dL (8.4-11.0); CHLORIDE 111 mmol/L (98-107); CREATININE 0.66 mg/dL (0.55-1.30); GLUCOSE 89 mg/dL (70-99); POTASSIUM 3.2 mmol/L (3.5-5.1); SODIUM SERUM 143 mmol/L (136-145); TOTAL BILIRUBIN 0.3 mg/dL (0.0-1.0); UREA NITROGEN, BLOOD 8 mg/dL (8-21)
--- NOTE | 2018-12-12 06:39 | NUR ---
CLOSING NOTES All needs met throughout shift. Patient is resting in bed. No s/s of acute distress. IVF infusing as ordered. Safety, fall and contact isolation precautions maintained. Will endorse care to oncoming day shift nurse.
[2018-12-12] MEDS: OXYCODONE/ACETAMINOPHEN *10*mg/325 mg TABLET PO PRN ×3 (07:03→23:43)
[2018-12-12] MEDS: BUDESONIDE 0.5 MG/2 ML AMPUL.NEB INH SCH ×2 (07:08→20:12)
--- NOTE | 2018-12-12 07:23 | NUR ---
PERCOCET/ENDORSED TO DAY SHIFT NURSE TO REASSESS Patient was given Percocet for c/o pain; see EMAR. Endorsed to EARNEST Koenig and EARNEST Pagan to reassess patient's pain.
--- NOTE | 2018-12-12 07:30 | NUR ---
Opening note Patient sitting up in bed at this time, afebrile. no SOB, no complaints of pain. Patient is A/O x4. No cough, no congestion at this time.Medina catheter in place, draining yellow clear urine. On contact isolation precautions for MRSA of nares fall and seizure precautions, reinforced. Bed kept in lowest position, bed alarm on, 3 side rails up, padded side rails in place, Educated patient on the call light system, patient verbalized understanding. Call light within reach. Will continue to monitor.
[2018-12-12 07:41] LABS: ANION GAP 11 (5-15)
[2018-12-12 07:45] VITALS: BP_SYST 152
[2018-12-12] MEDS: DOCUSATE SODIUM 100 MG CAPSULE PO SCH (09:00)
[2018-12-12] MEDS: FLUoxetine HCL 10 MG CAPSULE (PROzac) PO SCH (09:14)
[2018-12-12] MEDS: LACTOBACILLUS RHAMNOSUS GG 1 CAP CAPSULE PO SCH ×2 (09:14→21:22)
[2018-12-12] MEDS: TOPIRAMATE 25 MG TABLET(TOPAMAX) PO SCH ×2 (09:14→21:22)
[2018-12-12] MEDS: FAMOTIDINE 20 MG TABLET PO SCH ×2 (09:14→21:22)
[2018-12-12] MEDS: GABAPENTIN 400 MG CAPSULE PO SCH ×3 (09:14→21:22)
[2018-12-12] MEDS: CIPROFLOXACIN HCL/DEXAMET 7.5 ML OTIC DROPS.SUSP OT SCH ×2 (09:15→21:22)
[2018-12-12] MEDS ORDERED: POTASSIUM CHLORIDE 20 MEQ TAB.PRT.SR PO ONE (09:30)
[2018-12-12] MEDS: ENOXAPARIN SODIUM 40 MG/0.4 ML SYRINGE SUBCUT SCH (09:35)
--- NOTE | 2018-12-12 10:05 | NUR ---
Faxed information to [employer] at [facility] Farida Arvizu, requesting Face Sheet, H&P, progress notes, Physical Therapy notes fax # [phone] phone # [phone]
--- NOTE | 2018-12-12 10:25 | NUR ---
Spoke with Dr. Husain patient will not discharge until tomorrow possibly.
--- NOTE | 2018-12-12 12:00 | NUR ---
Rounds Patient sitting up in bed eating lunch, tolerating well, no nausea, no vomiting noted. No cough or congestion at this time.
[2018-12-12 12:32] VITALS: BP_SYST 149
--- NOTE | 2018-12-12 15:00 | NUR ---
Rounds Patient resting in bed at this time, No SOB. No complaints of pain at this time. No nausea, no vomiting.
[2018-12-12] MEDS: D5/0.45 NS 1,000 ML IV SCH (15:57)
[2018-12-12 16:24] VITALS: BP_SYST 145
[2018-12-12] MEDS: ATORVASTATIN 10 MG TABLET PO SCH (18:03)
--- NOTE | 2018-12-12 18:28 | NUR ---
Closing note Patient resting in bed, no complaints of pain, afebrile. Patient turned and repositioned. On ANA PAULA mattress. IV site patent and intact, no infiltration noted. On contact isolation for MRSA of nares, On seizure and fall precautions, reinforced. Padded side rails in place, bed in lowest position, bed alarm on, 2 side rails up, call light within reach. All needs met at this time.
[2018-12-12 20:58] VITALS: BP_SYST 141
[2018-12-13 00:24] VITALS: BP_SYST 180
[2018-12-13 00:49] VITALS: BP_SYST 144
[2018-12-13] MEDS: ACETAMINOPHEN 325 MG TABLET PO PRN (00:56)
[2018-12-13] MEDS: ALBUTEROL SULFATE 0.083% 2.5 MG/3 ML VIAL.NEB INH SCH ×3 (01:16→13:59)
[2018-12-13] MEDS: AMPICILLIN SODIUM 1 GM in NS 50 ML IV SCH ×2 (06:00→11:51)
--- NOTE | 2018-12-13 07:20 | NUR ---
Opening note Patient resting in bed at this time, afebrile. no SOB, no complaints of pain. Patient is A/O x4. No cough, no congestion at this time.Medina catheter in place, draining yellow clear urine. On contact isolation precautions for MRSA of nares fall and seizure precautions, reinforced. Bed kept in lowest position, bed alarm on, 3 side rails up, padded side rails in place, Educated patient on the call light system, patient verbalized understanding. Call light within reach. Will continue to monitor.
[2018-12-13] MEDS: BUDESONIDE 0.5 MG/2 ML AMPUL.NEB INH SCH (07:52)
[2018-12-13 08:10] VITALS: BP_SYST 174
[2018-12-13] MEDS: hydrALAZINE HCL 25 MG TABLET PO PRN (08:57)
[2018-12-13] MEDS: FAMOTIDINE 20 MG TABLET PO SCH (08:57)
[2018-12-13] MEDS: GABAPENTIN 400 MG CAPSULE PO SCH (08:57)
[2018-12-13] MEDS: LACTOBACILLUS RHAMNOSUS GG 1 CAP CAPSULE PO SCH (08:58)
[2018-12-13] MEDS: CIPROFLOXACIN HCL/DEXAMET 7.5 ML OTIC DROPS.SUSP OT SCH (08:58)
[2018-12-13] MEDS: MECLIZINE HCL 25 MG TABLET (ANITVERT) PO SCH (08:58)
[2018-12-13] MEDS: TOPIRAMATE 25 MG TABLET(TOPAMAX) PO SCH (08:58)
[2018-12-13] MEDS: OXYCODONE/ACETAMINOPHEN *10*mg/325 mg TABLET PO PRN (08:59)
[2018-12-13] MEDS: DOCUSATE SODIUM 100 MG CAPSULE PO SCH (09:00)
[2018-12-13] MEDS: ENOXAPARIN SODIUM 40 MG/0.4 ML SYRINGE SUBCUT SCH (09:00)
[2018-12-13] MEDS: FLUoxetine HCL 10 MG CAPSULE (PROzac) PO SCH (09:02)
--- NOTE | 2018-12-13 10:00 | NUR ---
DC fluids/rounds Patient resting in bed, new order to DC fluids, noted and carried out. Iv site patent and intact.
[2018-12-13 11:28] VITALS: BP_SYST 158
--- NOTE | 2018-12-13 11:31 | NUR ---
Called HCP Certified Midwife Jocelyn to notify of DC order back to [facility], Jocelyn stated patient has bed available at [facility] room 209-C for today, [facility], auth #[id number]. Addendum: 12/13/18 at 1137 by Arya Salgado RN called [facility] - set up machine operator hop picker time for 1500 today, spoke with Jena.
--- NOTE | 2018-12-13 12:15 | NUR ---
IV antibiotics IV antibiotic infusing as ordered, no adverse effects at this time.
[2018-12-13 14:22] VITALS: BP_SYST 141
--- NOTE | 2018-12-13 15:12 | NUR ---
PT TRANSFERRED Report given to Cherri at [facility]. Transfer packet with Transfer Orders and Medication Reconciliation form given to EMT with report. Exitcare provided. [facility] ID band removed, replaced with ID band with pt's name and . IV catheter removed, intact and dressing applied, no active bleeding. All belongings sent with patient. Patient left floor via gurney escorted by EMT in no distress.
== END 2018-12-13 15:12 | DRG 871 ==
LOC: SED 21:11 → STU 12-08 00:34 → SMU 12-09 19:10
PROVIDERS: ADMIT Internal Medicine; ATTEND Internal Medicine
DX: A40.1 Sepsis due to streptococcus, group B (principal); J18.9 Pneumonia, unspecified organism; G93.40 Encephalopathy, unspecified; F11.20 Opioid dependence, uncomplicated; I42.9 Cardiomyopathy, unspecified; N39.0 Urinary tract infection, site not specified; L03.116 Cellulitis of left lower limb; L03.115 Cellulitis of right lower limb; I13.0 Hypertensive heart and chronic kidney disease with heart failure and stage 1 through stage 4 chronic kidney disease, or unspecified chronic kidney disease; I50.9 Heart failure, unspecified; N18.9 Chronic kidney disease, unspecified; F41.9 Anxiety disorder, unspecified; F32.9 Major depressive disorder, single episode, unspecified; M54.9 Dorsalgia, unspecified; E11.22 Type 2 diabetes mellitus with diabetic chronic kidney disease; E11.40 Type 2 diabetes mellitus with diabetic neuropathy, unspecified; E78.5 Hyperlipidemia, unspecified; B96.89 Other specified bacterial agents as the cause of diseases classified elsewhere; G89.4 Chronic pain syndrome; E66.01 Morbid (severe) obesity due to excess calories; I87.2 Venous insufficiency (chronic) (peripheral); J40 Bronchitis, not specified as acute or chronic; B95.4 Other streptococcus as the cause of diseases classified elsewhere; H60.90 Unspecified otitis externa, unspecified ear; R19.7 Diarrhea, unspecified; Z88.8 Allergy status to other drugs, medicaments and biological substances; Z79.899 Other long term (current) drug therapy; Z68.38 Body mass index [BMI] 38.0-38.9, adult
CPT/HCPCS: 36415; 36600; 70450-TC; 71045; 80053; 80202-TC; 81000-TC; 82803-TC; 83605; 83880; 84484; 85025; 85610-TC; 85730-TC; 87040-TC; 87081; 87086; 87186-TC; 94640; 94760; 96361; 96365; 97110-GP; 97112-GP; 97530-GP; 99285; G0378; J0290; J0295; J1650; J1956; J2270; J2543; J3370; J7030; J7050; J7060; J7613; J7626; J8597

== ENCOUNTER 2019-01-26 08:17 | Emergency (ER) | payer OTHER, MEDICAID ==
[~2019-01-26] VITALS: Ht 157.5 cm; Wt 92.1 kg
[2019-01-26 08:17] VITALS: BP_SYST 122
[~2019-01-26 08:17] MED LIST: ACET-2634 PO; BISA10SU61 RC; DOCU-144 PO; FAMO20TA8 PO; FERR-69 PO; FLUT50DI IH; FURO-150 PO; GABA-533 PO; HYDR-4038 PO; IPRA4AER INH; LACT10SO6 PO; LORA-258 PO; LOVA40TA75 PO; MECL-110 PO; MENT118G TP; MENT8OIN TP; METH500T PO; MOM PO; NA P133E41 RC; OXYC-133 PO; OXYC30TA89 PO; PRO10 PO; SENN-234 PO; TOP25 PO
[2019-01-26] MEDS ORDERED: ONDANSETRON HCL 4 MG/2 ML VIAL IVP ONE (08:30)
[2019-01-26] MEDS ORDERED: fentaNYL CITRATE/PF 100 MCG/2 ML AMP IVP ONE (08:30)
[2019-01-26] MEDS ORDERED: LIDOCAINE/EPI 2% 1:100000 20 ML VIAL INJ ONE (09:00)
[2019-01-26] MEDS ORDERED: PERC10 PO (09:13)
[2019-01-26] MEDS ORDERED: ACET325T53 PO (09:13)
[2019-01-26 09:28] LABS: BASOPHILS % (AUTO) 0.6 % (0.0-2.0); EOSINOPHILS # (AUTO) 0.4 K/uL (0.0-0.4); EOSINOPHILS % (AUTO) 5.9 % (0.0-4.0); HEMOGLOBIN 11.3 g/dL (12.0-16.0); LYMPHOCYTES # (AUTO) 1.4 K/uL (1.0-5.5); LYMPHOCYTES % (AUTO) 23.4 % (20.5-51.5); MEAN CORPUSCULAR HEMOGLOBIN 32 pg (27-31); MEAN CORPUSCULAR HGB CONC 32 % (32-36); MEAN CORPUSCULAR VOLUME 99 fL (79.0-98.0); MONOCYTES # (AUTO) 0.4 K/uL (0.0-1.0); MONOCYTES % (AUTO) 6.2 % (1.7-9.3); NEUTROPHILS # (AUTO) 3.9 K/uL (1.8-7.7); NEUTROPHILS % (AUTO) 63.9 % (40.0-70.0); PLATELET COUNT (AUTO) 163 K/uL (130-430); RED BLOOD CELL COUNT(AUTO) 3.54 MIL/uL (4.2-6.2); RED CELL DISTRIBUTION WIDTH 14.7 % (9.0-15.0)
[2019-01-26 09:47] LABS: ANION GAP 3 (5-15); CHLORIDE 111 mmol/L (98-107); CREATININE 0.93 mg/dL (0.55-1.30); GLUCOSE 86 mg/dL (70-99); POTASSIUM 3.8 mmol/L (3.5-5.1); SODIUM SERUM 141 mmol/L (136-145); UREA NITROGEN, BLOOD 24 mg/dL (8-21)
[2019-01-26 09:51] LABS: ALANINE AMINOTRANSFERASE 65 U/L (12-78); ALBUMIN 2.7 g/dL (3.4-4.8); ASPARTATE AMINOTRANSFERASE 107 U/L (10-37); TOTAL BILIRUBIN 0.5 mg/dL (0.0-1.0)
[2019-01-26 10:28] LABS: BILIRUBIN,URINE NEGATIVE (NEGATIVE); BLOOD, URINE NEGATIVE (NEGATIVE); CLARITY/URINE SL HAZY (CLEAR); COLOR,URINE YELLOW (YELLOW); GLUCOSE,URINE NEGATIVE (NEGATIVE); KETONES,URINE NEGATIVE (NEGATIVE); LEUKOCYTE ESTERASE ,URINE 3+ (NEGATIVE); NITRITE, URINE POSITIVE (NEGATIVE); PH,URINE 5.5 (5.0-8.0); PROTEIN URINE NEGATIVE (NEGATIVE); UROBILINOGEN,URINE 0.2 (0.2-1.0)
[2019-01-26 10:39] LABS: BACTERIA,URINE MANY /HPF (None Seen); MUCUS,URINE 1+ /LPF (None Seen); RBC,URINE 0-3 /HPF (0-3); WBC,URINE 20-50 /HPF (0-3)
[2019-01-26] MEDS ORDERED: cefTRIAXone 1 GM IVPB PREMIX 50 ML IV ONE (10:45)
[2019-01-26] MEDS ORDERED: NACL 0.9% 1,000 ML IV ONE (10:45)
[2019-01-26] MEDS ORDERED: BACITRACIN 1 GM OINT TP ONE (11:56)
[2019-01-26 13:41] VITALS: BP_SYST 122
== END 2019-01-26 13:40 | disposition home or self-care (01) ==
LOC: SED 08:17
DX: S81.812A Laceration without foreign body, left lower leg, initial encounter (principal); S16.1XXA Strain of muscle, fascia and tendon at neck level, initial encounter; S00.03XA Contusion of scalp, initial encounter; S00.83XA Contusion of other part of head, initial encounter; N39.0 Urinary tract infection, site not specified; I50.9 Heart failure, unspecified; E11.9 Type 2 diabetes mellitus without complications; F41.9 Anxiety disorder, unspecified; F32.9 Major depressive disorder, single episode, unspecified; Z86.2 Personal history of diseases of the blood and blood-forming organs and certain disorders involving the immune mechanism; Z90.49 Acquired absence of other specified parts of digestive tract; Z88.6 Allergy status to analgesic agent; Z79.899 Other long term (current) drug therapy; W06.XXXA Fall from bed, initial encounter; Y93.89 Activity, other specified; Y92.89 Other specified places as the place of occurrence of the external cause; Y99.8 Other external cause status
CPT/HCPCS: 12004; 36415; 70450; 72125; 73130; 73590; 80053; 81000; 83605; 85025; 87040; 87086; 87186; 93005; 96365; 96375; 99284; J0696; J2405; J3010; J7030